=== PATIENT | male | born 1980 | race African-American/Black ===

== ENCOUNTER 2017-06-25 19:01 | Emergency (ER) | payer MEDICAID ==
[~2017-06-25] VITALS: Ht 170.2 cm; Wt 56.8 kg
[2017-06-25 19:08] VITALS: BP 119/76
== END 2017-06-25 20:52 | disposition home or self-care (01) ==
LOC: ED 20:12
DX: J20.9 Acute bronchitis, unspecified (principal); J45.909 Unspecified asthma, uncomplicated
CPT/HCPCS: 71045; 99283